=== PATIENT | female | born 1990 | race Two or more races ===

== ENCOUNTER 2017-12-22 10:51 | Emergency (ER) | payer MEDICAID, OTHER ==
[~2017-12-22] VITALS: Ht 175.3 cm; Wt 70.5 kg
[~2017-12-22 10:51] MED LIST: ALBU6.7H INH; ASPI-529; CLON-529 PO; DICY10CA88 PO; OMEG500C3 PO; ONDA4TAB6 PO; POTA10TA15 PO; PROM25SU46 RC; ZOF4T PO
[2017-12-22 11:04] VITALS: BP 127/76
== END 2017-12-22 13:50 | disposition left against medical advice (07) ==
LOC: ER 10:53
DX: M79.606 Pain in leg, unspecified (principal); Z53.21 Procedure and treatment not carried out due to patient leaving prior to being seen by health care provider

== ENCOUNTER → 2019-02-21 | Emergency (ER) | payer MEDICAID ==
[~2019-02-21] VITALS: Ht 175.3 cm; Wt 85.9 kg
[~2019-02-21] MED LIST changes: +HYDROcodone/acetaminophen 10/325mg tab PO ONE; +IBUP-1985 PO
[2019-02-21 14:55] VITALS: BP 136/83
== END | disposition home or self-care (01) ==
LOC: ER 14:50
DX: S93.401A Sprain of unspecified ligament of right ankle, initial encounter (principal); J45.909 Unspecified asthma, uncomplicated; F12.90 Cannabis use, unspecified, uncomplicated; Z88.5 Allergy status to narcotic agent; Z79.899 Other long term (current) drug therapy; Z90.89 Acquired absence of other organs; Z56.0 Unemployment, unspecified; X50.1XXA Overexertion from prolonged static or awkward postures, initial encounter; Y93.44 Activity, trampolining; Y92.89 Other specified places as the place of occurrence of the external cause; Y99.8 Other external cause status
CPT/HCPCS: 29515; 73610; 99283

== ENCOUNTER 2019-03-09 11:37 | Outpatient (CLI) | payer MEDICAID ==
[~2019-03-09 11:37] MED LIST changes: -HYDROcodone/acetaminophen 10/325mg tab PO ONE
[2019-03-09 11:46] VITALS: BP 115/67
== END 2019-03-09 12:55 | disposition home or self-care (01) ==
LOC: ORTHO 11:37
PROVIDERS: ATTEND Orthopaedic Surgery
DX: S93.491A Sprain of other ligament of right ankle, initial encounter (principal); X58.XXXA Exposure to other specified factors, initial encounter; Y93.89 Activity, other specified; Y92.89 Other specified places as the place of occurrence of the external cause; Y99.8 Other external cause status
CPT/HCPCS: 73610; 99213

== ENCOUNTER 2019-10-12 21:26 | Emergency (ER) | payer MEDICAID ==
[~2019-10-12] VITALS: Ht 175.3 cm; Wt 90.0 kg
[~2019-10-12 21:26] MED LIST changes: -ALBU6.7H INH; +ALBU6.7H9 INH
[2019-10-12 21:31] VITALS: BP 133/85
[2019-10-12 21:56] LABS: URINE HCG NEGATIVE (NEG)
[2019-10-12 22:05] LABS: CLARITY,URINE SLIGHTLY CLOUDY (Clear); COLOR,URINE YELLOW (Yellow); GLUCOSE, URINE NEGATIVE (Neg); KETONES,URINE NEGATIVE (Neg); LEUKOCYTE ESTERASE ,URINE NEGATIVE (Neg); NITRITES, URINE NEGATIVE (Neg); OCCULT BLOOD,URINE LARGE (Neg); PH,URINE 5.5 (4.8-8.0); PROTEIN,URINE TRACE mg/dl (Neg); UROBILINOGEN,URINE 0.2 E.U/dL (0.2-1.0)
[2019-10-12 22:12] LABS: UA COLLECTION TYPE CLN CATCH MIDSTREAM
[2019-10-12 22:13] LABS: WBC,URINE 0-4 /HPF (0-4)
[2019-10-12 22:14] LABS: BACTERIA,URINE FEW /HPF (Neg); MUCUS STRANDS FEW /LPF (Neg); SQUAMOUS EPITHELIAL CELL,UR MODERATE /LPF (FEW)
[2019-10-12] MEDS ORDERED: amox tr/potassium clavulanate 875/125mg TAB PO ONE (23:55)
[2019-10-12] MEDS ORDERED: bupivacaine 0.25%/epinephrine 1:200,000 inj (contains preserv. MDV) IJ ONE (23:55)
[2019-10-12] MEDS ORDERED: AMOX-580 PO (23:56)
== END 2019-10-13 00:30 | disposition home or self-care (01) ==
LOC: ER 21:26
DX: K04.7 Periapical abscess without sinus (principal); R10.31 Right lower quadrant pain; R11.2 Nausea with vomiting, unspecified; J45.909 Unspecified asthma, uncomplicated; F41.9 Anxiety disorder, unspecified; Z90.89 Acquired absence of other organs; Z56.0 Unemployment, unspecified; Z88.5 Allergy status to narcotic agent; Z79.899 Other long term (current) drug therapy
CPT/HCPCS: 64400; 81001; 81025; 99284